=== PATIENT | female | born 1985 | race Caucasian/White ===

== ENCOUNTER → 2019-07-25 | Outpatient (CLI) | payer OTHER ==
--- NOTE | 2019-07-25 13:39 | US ---
EXAMINATION TYPE: US abdomen complete DATE OF EXAM: 07/25/2019 COMPARISON: NONE CLINICAL HISTORY: Abd pain R10.9. RLQ PAIN EXAM MEASUREMENTS: Liver Length: 16.7 cm Gallbladder Wall: .2 cm CBD: .3 cm Spleen: 12.8 cm Right Kidney: 9.4 X 4.7 X 3.9 cm Left Kidney: 10.2 X 4.1 X 4.8 cm Exam is slightly limited secondary to patient body habitus. Pancreas: wnl Liver: wnl Gallbladder: wnl Evidence for sonographic Salamanca's sign: No CBD: wnl Spleen: wnl Right Kidney: wnl Left Kidney: wnl Upper IVC: wnl Abd Aorta: wnl The liver is homogenous. The intrahepatic portion of the IVC and proximal abdominal aorta are within normal limits. There is no evidence of cholelithiasis. Common bile duct is unremarkable. The visu alized portions of the pancreas are homogenous. The spleen is unremarkable. Kidneys are symmetric a nd free of hydronephrosis. No renal lesions are seen. IMPRESSION: Slightly limited exam secondary to patient body habitus however overall unremarkable abdo jimbo ultrasound. No sonographic evidence of cholelithiasis nor acute cholecystitis.
== END | disposition home or self-care (01) ==
LOC: RADUSWWP 12:52
PROVIDERS: ATTEND Internal Medicine Endocrinology, Diabetes & Metabolism
DX: R10.9 Unspecified abdominal pain (principal)
CPT/HCPCS: 76700

== ENCOUNTER → 2019-08-01 | Outpatient (CLI) | payer OTHER ==
[2019-08-01 15:34] LABS: HCT 42.3 % (34.0-46.0); HGB 13.7 gm/dL (11.4-16.0); MCH 30.8 pg (25.0-35.0); MCHC 32.4 g/dL (31.0-37.0); MCV 95.2 fL (80.0-100.0); Mean Platelet Volume 7.9; Platelet Count 213 k/uL (150-450); RBC 4.44 m/uL (3.80-5.40); WBC 7.4 k/uL (3.8-10.6)
[2019-08-01 15:47] LABS: Appearance,Urine Clear (Clear); Bacteria,Urine Rare /hpf; Bilirubin,Urine Negative (Negative); Blood,Urine Small (Negative); Color,Urine Light Yellow; Glucose,Urine (UA) Negative (Negative); Ketones,Urine Negative (Negative); Leukocyte Esterase,Urine Negative (Negative); Mucus,Urine Rare /hpf; Nitrite,Urine Negative (Negative); Protein,Urine Negative (Negative); RBC,Urine <1 /hpf (0-5); Specific Gravity,Urine 1.008 (1.001-1.035); Squamous Epithelial Cell,Urine 1 /hpf (0-4); Urobilinogen,Urine <2.0 mg/dL (<2.0); WBC,Urine 1 /hpf (0-5)
== END | disposition home or self-care (01) ==
LOC: LABWHC1 14:52
PROVIDERS: ATTEND Internal Medicine Endocrinology, Diabetes & Metabolism
DX: R10.9 Unspecified abdominal pain (principal)
CPT/HCPCS: 36415; 81001; 85027

== ENCOUNTER → 2019-08-05 | Outpatient (CLI) | payer OTHER ==
--- NOTE | 2019-08-05 09:09 | XR ---
EXAMINATION TYPE: XR KUB DATE OF EXAM: 08/05/2019 8:59 AM CLINICAL HISTORY: Right-sided renal calculus. TECHNIQUE: Single supine KUB image of the abdomen is obtained. COMPARISON: Abdominal ultrasound dated 07/25/2019. FINDINGS: Moderate degree colonic fecal stasis partially obscuring the renal shadows. No discrete simon culus abdomen in the expected location of the renal shadows. Multiple phleboliths in the pelvis. Tubi ng lies the stomach from left than and osseous peritoneal drain. IMPRESSION: 1. Kidneys are partially obscured by overlying bowel contents. Moderate degree colonic fecal stasis. No discrete renal calculus.
== END | disposition home or self-care (01) ==
LOC: RADXRMAIN 08:49
PROVIDERS: ATTEND Internal Medicine Endocrinology, Diabetes & Metabolism
DX: R14.3 Flatulence (principal); R19.5 Other fecal abnormalities
CPT/HCPCS: 74018

== ENCOUNTER → 2019-08-06 | Outpatient (CLI) | payer OTHER ==
--- NOTE | 2019-08-06 10:10 | CT ---
EXAMINATION TYPE: CT abdomen pelvis wo con DATE OF EXAM: 08/06/2019 HISTORY: Abdominal pain not further specified. CT DLP: 1202 mGycm. Automated Exposure Control for Dose Reduction was Utilized. TECHNIQUE: CT scan of the abdomen and pelvis is performed without oral or IV contrast. IV contrast n ot given as patient states has contrast allergy. COMPARISON: Complete abdominal ultrasound 12 days ago. FINDINGS: Within the limitations of a non-contrast study, the following observations are made. LUNG BASES: No significant abnormality is appreciated. LIVER/GB: No significant abnormality is appreciated. PANCREAS: No significant abnormality is seen. SPLEEN: No significant abnormality is seen. ADRENALS: No significant abnormality is seen. KIDNEYS: 2 mm nonobstructing left renal calculus midpole level coronal image 60. No right-sided renal calculi. No hydronephrosis or obstructing ureteral calculi are identified bilaterally. BOWEL: Evaluation noted slightly suboptimal secondary to lack of enteric contrast. A lap band device is satisfactory in position and angle just below diaphragm. No suspicious small or large bowel dilata tion. Terminal ileum thought within normal limits near coronal image 41. Normal-appearing appendix is present near coronal image 37. GENITAL ORGANS: Anteverted uterus is seen with slight lobulation suggesting possible underlying fibro ids. Left ovary axial image 74 slightly larger than right ovary axial image 69. Few scattered adjacen t tiny pelvic phleboliths. LYMPH NODES: No greater than 1cm abdominal or pelvic lymph nodes are appreciated. OSSEOUS STRUCTURES: Small posterior disc herniation L4-L5 level seen sagittal image 46. OTHER: No significant additional abnormality is seen. IMPRESSION: No bowel obstruction. No acute findings are evident.
== END | disposition home or self-care (01) ==
LOC: RADCTMAIN 08:32
PROVIDERS: ATTEND Internal Medicine Endocrinology, Diabetes & Metabolism
DX: R10.9 Unspecified abdominal pain (principal)
CPT/HCPCS: 74176

== ENCOUNTER 2019-08-12 07:44 | Day surgery (SDC) | payer OTHER ==
[2019-08-08 12:53] VITALS: BMI 34.7
[~2019-08-12 07:44] MED LIST: DEXAMETHASONE SOD PHOSPHATE 10 MG/ML 1 ML VIAL IV ONE; HEPARIN SODIUM,PORCINE 5,000 UNIT/ML 1 ML VIAL SQ ONE; LACTATED RINGERS 1,000 ML IV SCH; LIDOCAINE 1% 20 ML VIAL (10MG/ML) FOR IV START INTRADERMA PRN; ONDANSETRON 4 MG/2 ML VIAL IVP ONE
[2019-08-12] MEDS ORDERED: ROCURONIUM BROMIDE 10 MG/ML 10 ML VIAL IV ONE (09:26)
[2019-08-12] MEDS ORDERED: NEOSTIGMINE 1 MG/ML 10 ML VIAL ONE (09:26)
[2019-08-12] MEDS ORDERED: HYDROmorphone (PF) 1 MG/ML ONE (09:26)
[2019-08-12] MEDS ORDERED: fentaNYL (PF) 50 MCG/ML 2 ML AMP ONE (09:26)
[2019-08-12] MEDS ORDERED: GLYCOPYRROLATE 0.2 MG/ML 2 ML VIAL ONE (09:26)
[2019-08-12] MEDS ORDERED: MIDAZOLAM 2 MG/2 ML VIAL ONE (09:26)
[2019-08-12] MEDS ORDERED: SUCCINYLCHOLINE CHLORIDE 100 MG/5 ML SYR IV ONE (09:26)
[2019-08-12] MEDS ORDERED: LIDOCAINE 1% INJ 10MG/ML (20 ML MDV) ONE (09:26)
[2019-08-12] MEDS ORDERED: PROPOFOL 10 MG/ML 20 ML VIAL IV ONE (09:26)
[2019-08-12] MEDS ORDERED: BUPIVACAINE (PF) 0.5% 30 ML VIAL SQ ONE ×2 (10:00)
[2019-08-12] MEDS ORDERED: LACTATED RINGERS 1,000 ML IV ONE (10:14)
[2019-08-12] MEDS ORDERED: HYDROcodone/APAP 5-325MG 1 EACH TAB PO PRN (10:46)
[2019-08-12] MEDS ORDERED: ONDANSETRON 4 MG/2 ML VIAL IVP PRN (10:46)
[2019-08-12] MEDS ORDERED: NALOXONE 0.4 MG/ML 1 ML VIAL IV PRN (10:46)
--- NOTE | 2019-08-12 10:49 | P.OP ---
Date of Procedure: 08/12/19 Procedure(s) Performed: PREOPERATIVE DIAGNOSIS: Band intolerance/abdominal pain POSTOPERATIVE DIAGNOSIS: Same PROCEDURE: Laparoscopic lap band removal SURGEON: Jennifer EBL: Minimal ANESTHESIA: General COMPLICATIONS: None OPERATIVE PROCEDURE: The patient was brought and placed on the operating room table in the supine position. The patient was placed under general anesthesia at that time. The patient was then placed in lithotomy. The abdomen was prepped and draped in the usual sterile fashion. The previous port incision was localized and then incised using a scalpel. The port was easily excised using electrocautery. The tubing as per the CAT scan report had broken off and away from the port. Entrance into the perineal cavity occurred using a 5 mm optical trocar through the old trocar entrance site. Insufflation took place to 15 mmHg. A right subxiphoid 5 mm trocar was placed. This was then removed and the medium Julian hook was used to elevate the left lobe of the liver anteriorly. An additional 5 mm trocar was placed under direct visualization in the left lateral upper quadrant. The original 5 mm trocar was switched to a 15 mm trocar. A additional 5 mm trocar was placed in the right upper quadrant under direct dilatation. There were adhesions to the band in the buccal that were lysed using both the LigaSure and electrocautery. The band was then cut using the laparoscopic glen. The band was then removed easily in 2 portions through the 15 mm trocar site. The stomach itself was inspected and revealed no evidence of erosion or prolapse. The trochars were removed. The fascia at the 15 mm site was closed using a [id number] 0 Vicryl stitch. The subcutaneous tissues at the port site was closed using a 3-0 Vicryl suture. The skin at all 4 incision sites were closed using 4-0 Monocryl sutures. Skin glue and sterile dressings were then applied. DISPOSITION: Stable to recovery room
[2019-08-12 11:02] VITALS: TEMP 98.5
[2019-08-12] MEDS: fentaNYL (PF) 50 MCG/ML 2 ML AMP IV PRN ×2 (11:09→11:12)
[2019-08-12] MEDS: HYDROmorphone 0.5 MG/0.5 ML SYRINGE IVP PRN ×2 (11:40→11:45)
[2019-08-12 11:45] VITALS: RESP 16
[2019-08-12] MEDS ORDERED: HYDROcodone/APAP 5-325MG 1 EACH TAB PO ONE (12:50)
[2019-08-12 13:37] VITALS: BP 117/79; PULSE 82
== END 2019-08-12 13:55 | disposition home or self-care (01) ==
LOC: OR 07:44
PROVIDERS: ATTEND Surgery
DX: K95.09 Other complications of gastric band procedure (principal); Z88.6 Allergy status to analgesic agent; Z91.040 Latex allergy status; Z91.013 Allergy to seafood; G43.909 Migraine, unspecified, not intractable, without status migrainosus; Z79.1 Long term (current) use of non-steroidal anti-inflammatories (NSAID); Z79.899 Other long term (current) drug therapy
CPT/HCPCS: 81025; 43774; J2250; J1644; J1100; J2710; J0690; J2405; J2001; J3010; J1170 ×2; J0330; J2704

== ENCOUNTER → 2020-10-13 | Outpatient (CLI) | payer BC, OTHER ==
[2020-10-13 15:38] VITALS: BP 125/82; PULSE 76; TEMP 98.2; BMI 42.4
--- NOTE | 2020-10-13 17:52 | P.BASOAP ---
Subjective Progress Note Date: 10/13/20 Principal diagnosis: Morbid obesity Patient returns for evaluation. Underwent laparoscopic lap band removal July 2019. Patient says her weight has increased since then. Current weight 255. Patient interested in additional bariatric procedure. Mother had open gastric bypass and has had some issues over the years. Patient is interested in losing a significant amount of weight however. No reflux. No comorbidities. Objective - Vital Signs Vital signs: Vital Signs Temp 98.2 F 10/13/20 15:34 Pulse 76 10/13/20 15:34 Resp BP 125/82 10/13/20 15:34 Pulse Ox Intake & Output 10/12/20 10/13/20 10/13/20 18:59 06:59 18:59 Weight 115.666 kg - Exam Abdomen: Soft, nontender, nondistended Assessment/Plan (1) Morbid obesity Narrative/Plan: Patient interested in definitive bariatric procedure. Discussed both laparoscopic sleeve gastrectomy and laparoscopic bypass as options at this point. The anticipated greater degree of weight loss with gastric bypass was desirable to the patient. We'll refer to [facility] for evaluation by their bariatric team. Patient will inform me of her final decisions. Plan: Date: 10/13/20 Initial Weight: Initial BMI: Current Weight: 115.666 kg Current BMI: 42.4 Type of Surgery: Total Volume in Band: Previous Volume: Volume Removed: Volume Added: Band Size:
== END | disposition home or self-care (01) ==
LOC: BARWHC3 15:01
PROVIDERS: ATTEND Surgery
DX: E66.01 Morbid (severe) obesity due to excess calories (principal); Z68.41 Body mass index [BMI] 40.0-44.9, adult
CPT/HCPCS: 99211

== ENCOUNTER → 2022-07-15 | Outpatient (CLI) | payer BC ==
--- NOTE | 2022-07-15 16:13 | CT ---
EXAMINATION TYPE: CT iac w con DATE OF EXAM: 07/15/2022 COMPARISON: None HISTORY: 37-year-old female R42, dizziness and giddiness, left ear pain CT DLP: 142.7 mGycm Automated exposure control for dose reduction was used. TECHNIQUE: Contiguous high-resolution axial scanning of the temporal bones performed with IV Contras t, patient injected with 70 mL of Isovue 300. Coronal reformatted images obtained. FINDINGS: There is no abnormality of visualized intracranial structures. Bilateral external auditory canals appear patent. The middle ear cavities and mastoid air cells are well pneumatized. The adjacent dural venous sinus r emains well opacified. There is no abnormality of middle ear ossicles. The round and oval windows are normal. There is no abnormality of bony labyrinths. The vestibular and cochlear aqueducts are well visualized. The facial nerve canal is normal bilaterally. The internal auditory canal and meati are symmetrical bilaterally. There is no evidence of fractures. Mild to moderate degenerative change left TMJ, coronal image 91. Rightward nasal septal deviation. 9 mm mucosal retention cyst posterior left ethmoid air cells. Orbit s and globes appear intact. Reformatted images confirm above findings. IMPRESSION: 1. 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 Correlate as to if this could be contributing to the rachna ent's pain. 2. Otherwise, unremarkable temporal bone CT.
== END | disposition home or self-care (01) ==
LOC: RADCTMAIN 15:15
PROVIDERS: ATTEND Otolaryngology
DX: M26.642 Arthritis of left temporomandibular joint (principal); R42 Dizziness and giddiness
CPT/HCPCS: 70481; Q9967

== ENCOUNTER → 2024-07-05 | Outpatient (CLI) | payer OTHER, BC ==
--- NOTE | 2024-07-05 10:24 | MR ---
EXAMINATION TYPE: MR shoulder LT wo con DATE OF EXAM: 07/05/2024 COMPARISON: None HISTORY: Left shoulder pain, decreased ROM x 3 mos. No trauma. TECHNIQUE: Multiplanar, multisequence imaging of the left shoulder is performed without contrast. FINDINGS: There is no bone contusion or fracture. There is no significant degeneration of the AC joint or glenohumeral joint. There is no subacromial or subdeltoid bursitis. There is no rotator cuff tear. There is a small tear in the superior cartilaginous labrum consistent with a SLAP injury The biceps tendon is normal in signal intensity and position within the bicipital groove and the milagro ps anchor is intact. IMPRESSION: SLAP injury involving the superior cartilaginous labrum. [facility], Workstation: [id number] 07/05/2024 10:21 AM
== END | disposition home or self-care (01) ==
LOC: RADMRIMAIN 06:22
PROVIDERS: ATTEND Family Medicine
DX: S43.432A Superior glenoid labrum lesion of left shoulder, initial encounter (principal); M25.812 Other specified joint disorders, left shoulder